=== PATIENT | male | born 1965 | race Caucasian/White ===

== ENCOUNTER 2022-07-28 22:48 | Emergency (ER) | payer OTHER ==
[~2022-07-28] VITALS: Ht 185.4 cm; Wt 86.2 kg
[2022-07-28] MEDS ORDERED: TETANUS/DIPHTHERIA TOXOID [ADULT] 0.5 ML VIAL IM ONE (23:00)
[2022-07-28] MEDS ORDERED: CEFAZOLIN SODIUM 1 GM VIAL IM SCH (23:00)
[2022-07-28 23:58] VITALS: BP 135/71
[2022-07-28] MEDS ORDERED: ACET-2079 PO (23:58)
[2022-07-28] MEDS ORDERED: AMOX1TAB16 PO (23:58)
[2022-07-29] MEDS ORDERED: ACETAMINOPHEN WITH CODEINE 1 TAB TAB PO ONE
[2022-07-29] MEDS ORDERED: BACITRACIN 28.4 GM OINT TP ONE (00:30)
== END 2022-07-29 00:11 | disposition home or self-care (01) ==
LOC: EDH 22:48
DX: S62.636A Displaced fracture of distal phalanx of right little finger, initial encounter for closed fracture (principal); S61.216A Laceration without foreign body of right little finger without damage to nail, initial encounter; S80.01XA Contusion of right knee, initial encounter; S30.1XXA Contusion of abdominal wall, initial encounter; S61.451A Open bite of right hand, initial encounter; Z98.890 Other specified postprocedural states; W19.XXXA Unspecified fall, initial encounter; Y93.89 Activity, other specified; Y92.89 Other specified places as the place of occurrence of the external cause; Y99.8 Other external cause status
CPT/HCPCS: 99284; 90714; 73140 ×2; 73562; 96372; 90471; 12001; J0690